=== PATIENT | female | born 1975 | race Caucasian/White ===

== ENCOUNTER 2021-10-05 10:46 | Outpatient (CLI) | payer BC, SELFPAY ==
--- NOTE | 2021-10-05 11:00 | CRLHL7_ITS ---
For Patients: As a result of the Cures Act, medical imaging exams and procedure reports are released immediately into your electronic medical record. You may view this report before your referring provider. If you have questions, please contact your health care provider. Indication: SINUSITIS Technique: Performed without IV contrast Comparison: None available Findings: Frontal sinuses: Clear. Ethmoid sinuses: Mild mucosal thickening left posterior ethmoid sinus. Clear right ethmoid sinus. Maxillary sinuses: Clear. The maxillary sinus drainage pathways are patent on both sides. Sphenoid sinuses: Clear, including both sphenoethmoidal recesses. Nasal Cavity: Slight leftward deviation nasal septum. Nonobstructing nataliia bullosa middle turbinates. No polyps. No TMJ abnormalities identified. The visualized portions of the orbits, intracranial contents and upper soft tissue neck are grossly negative. Impression: 1. Mild left posterior ethmoid sinus disease. 2. Mild leftward curvature of the nasal septum. Please note that all CT scans at this facility use dose modulation, iterative reconstruction, and/or weight-based dosing when appropriate to reduce radiation dose to as low as reasonably achievable. Dictated by Juancho Martinez MD @ 10/05/2021 12:25:39 PM (Electronically Signed)
== END 2021-10-05 10:47 | disposition home or self-care (01) ==
PROVIDERS: PCP Internal Medicine; Visit Provider Otolaryngology
DX: J32.9 Chronic sinusitis, unspecified (principal); J32.3 Chronic sphenoidal sinusitis; J34.2 Deviated nasal septum
CPT/HCPCS: 70486

== ENCOUNTER 2021-10-21 10:37 | Outpatient (CLI) | payer BC, SELFPAY ==
[2021-10-21 10:10] LABS: Chloride* 107 mmol/L (96-114); Potassium* 4.4 mmol/L (3.6-5.1); Sodium* 137 mmol/L (135-149)
[2021-10-21 10:13] LABS: Blood Urea Nitrogen* 20 mg/dL (5-24); Carbon Dioxide* 25 mmol/L (20-32); Cholesterol* 230 mg/dL (90-199); Creatinine* 0.7 mg/dL (0.5-1.5); Estimated Glomerular Filt Rate 107 ml/min
[2021-10-21 10:14] LABS: Calcium* 9.2 mg/dL (8.4-10.6); Glucose* 84 mg/dL (60-115); HDL Cholesterol* 67 mg/dL (>=50); LDL Cholesterol Calculated 145 mg/dL (<100); Triglycerides* 91 mg/dL (40-149)
[2021-10-21 11:03] LABS: Vitamin B12* 336 pg/mL (243-894)
== END 2021-10-21 10:38 | disposition home or self-care (01) ==
PROVIDERS: PCP Emergency Medicine; Visit Provider Emergency Medicine
DX: R20.2 Paresthesia of skin (principal); Z13.6 Encounter for screening for cardiovascular disorders; Z13.1 Encounter for screening for diabetes mellitus
CPT/HCPCS: 80048; 80061; 82607; 84443

== ENCOUNTER 2022-10-18 12:53 | Outpatient (CLI) | payer BC, SELFPAY | END 2022-10-18 12:54 | disposition home or self-care (01) | PROVIDERS: PCP Emergency Medicine; Visit Provider Emergency Medicine | DX: R47.9 Unspecified speech disturbances (principal); Z13.1 Encounter for screening for diabetes mellitus; Z13.6 Encounter for screening for cardiovascular disorders | CPT/HCPCS: 80053; 82607; 84443 ==

== ENCOUNTER 2022-10-20 13:03 | Outpatient (CLI) | payer BC, SELFPAY ==
--- NOTE | 2022-10-20 13:00 | CRLHL7_ITS ---
For Patients: As a result of the Century Cures Act, medical imaging exams and procedure reports are released immediately into your electronic medical record. You may view this report before your referring provider. If you have questions, please contact your health care provider. INDICATION: Unspecified speech disturbances. TECHNIQUE: Multiplanar multisequence noncontrast MR images acquired through the brain. COMPARISON: None. FINDINGS: The ventricles and sulci are within normal limits for patient age. No mass effect or midline shift. Punctate FLAIR hyperintensity within the subcortical white matter of the left superior frontal gyrus (series 4, image 34), nonspecific though potentially relating to sequelae of migraine headaches or minimal chronic microvascular change. No intracranial hemorrhage or pathologic extra-axial fluid collection. No diffusion restriction to suggest acute infarction. The major arterial flow voids of the skullbase are preserved. The globes are symmetric. Mild frontal and ethmoid sinus mucosal thickening. Trace right mastoid fluid. Left temporomandibular joint degenerative changes. IMPRESSION: No acute infarction, mass effect, or intracranial hemorrhage. Dictated by Ronal Suggs MD @ 10/20/2022 4:30:53 PM (Electronically Signed)
== END 2022-10-20 13:04 | disposition home or self-care (01) ==
LOC: MRI 13:04
PROVIDERS: PCP Emergency Medicine; Visit Provider Emergency Medicine
DX: R47.9 Unspecified speech disturbances (principal)
CPT/HCPCS: 70551